=== PATIENT | female | born 1980 | race Caucasian/White ===

== ENCOUNTER 2020-10-15 01:17 | Emergency (ER) | payer OTHER ==
[2020-10-15] MEDS ORDERED: PRINIVIL20 M1 PO (01:31)
[2020-10-15 02:16] LABS: EOS # 0.3 (0.04-0.40); EOS % 3.4 % (1.0-5.0); HEMATOCRIT 42.9 % (37.0-47.0); HEMOGLOBIN 13.7 g/dL (12.5-16.0); LYMPH# 3.1 (1.50-4.00); MEAN CELL VOLUME 96 fl (78-100); MEAN CORPUSCULAR HEMOGLOBIN 31 pg (27-31); MEAN CORPUSCULAR HGB CONC 32 g/dL (33-37); MEAN PLATELET VOLUME 9.4 fl (7.4-10.4); MONO # 0.9 (0.20-0.80); NEU # 5.3 (1.40-6.50); PLATELET COUNT 349 K/mm3 (130-400); RED BLOOD COUNT 4.47 M/mm3 (4.10-5.30); WHITE BLOOD COUNT 9.7 K/mm3 (4.8-10.8)
[2020-10-15 02:22] LABS: URINE APPEARANCE CLEAR; URINE BILIRUBIN NEGATIVE (NEGATIVE); URINE BLOOD 250 ery/uL (NEGATIVE); URINE COLOR YELLOW; URINE GLUCOSE NEGATIVE (NEGATIVE); URINE KETONE NEGATIVE (NEGATIVE); URINE LEUKOCYTE ESTERASE NEGATIVE (NEGATIVE); URINE NITRATE NEGATIVE (NEGATIVE); URINE PROTEIN(semi-quant) TRACE mg/dL (NEGATIVE); URINE UROBILINOGEN NORMAL (NORMAL)
[2020-10-15 02:23] LABS: URINE MUCUS PRESENT (NOT PRESENT)
[2020-10-15 02:28] LABS: ALBUMIN 4.4 g/dL (3.5-5.0); POTASSIUM 3.7 mmol/L (3.5-5.1)
[2020-10-15 02:29] LABS: CALCIUM 9.6 mg/dL (8.3-10.5)
[2020-10-15 02:31] LABS: TOTAL PROTEIN 7.8 g/dL (6.4-8.3)
[2020-10-15 02:32] LABS: TOTAL BILIRUBIN 0.3 mg/dL (0.2-1.2)
[2020-10-15] MEDS ORDERED: PERCOCET 325 MG1 TA2 PO (07:03)
[2020-10-15] MEDS ORDERED: ONDANSETRON ODT8 MG PO (07:06)
[2020-10-15 08:26] VITALS: BP 111/62
== END 2020-10-15 08:30 | disposition home or self-care (01) ==
LOC: ED 01:17
PROVIDERS: Nurse Practitioner Family
DX: N13.2 Hydronephrosis with renal and ureteral calculous obstruction (principal); I10 Essential (primary) hypertension; Z32.02 Encounter for pregnancy test, result negative; Z90.49 Acquired absence of other specified parts of digestive tract; Z88.2 Allergy status to sulfonamides
CPT/HCPCS: J1885; J2270; J2405; J2550; J7030

== ENCOUNTER 2020-12-29 10:54 | Outpatient (RCR) | payer OTHER ==
[~2020-12-29 10:54] MED LIST: ONDANSETRON ODT8 MG PO; PERCOCET 325 MG1 TA2 PO; PRINIVIL20 M1 PO
== END 2021-01-28 17:00 ==
LOC: PT
DX: M50.30 Other cervical disc degeneration, unspecified cervical region (principal)

== ENCOUNTER → 2021-01-07 | Outpatient (CLI) | payer OTHER ==
[2021-01-07 09:11] LABS: EOS # 0.2 (0.04-0.40); EOS % 1.3 % (1.0-5.0); HEMATOCRIT 42.1 % (37.0-47.0); HEMOGLOBIN 13.3 g/dL (12.5-16.0); LYMPH# 4.4 (1.50-4.00); MEAN CELL VOLUME 96 fl (78-100); MEAN CORPUSCULAR HEMOGLOBIN 30 pg (27-31); MEAN CORPUSCULAR HGB CONC 32 g/dL (33-37); MEAN PLATELET VOLUME 9.1 fl (7.4-10.4); MONO # 1.3 (0.20-0.80); PLATELET COUNT 310 K/mm3 (130-400); RED BLOOD COUNT 4.39 M/mm3 (4.10-5.30); RED CELL DISTRIBUTION WIDTH 13.8 % (11.5-14.5); WHITE BLOOD COUNT 15.3 K/mm3 (4.8-10.8)
[2021-01-07 09:18] LABS: ALBUMIN 4.1 g/dL (3.5-5.0)
[2021-01-07 09:19] LABS: CALCIUM 9.1 mg/dL (8.3-10.5)
[2021-01-07 09:21] LABS: TOTAL PROTEIN 7.1 g/dL (6.4-8.3)
[2021-01-07 09:23] LABS: TOTAL BILIRUBIN 0.6 mg/dL (0.2-1.2)
[2021-01-07 10:05] LABS: NEU # 9.2 (1.40-6.50)
== END ==
LOC: LAB 08:52
PROVIDERS: Physician Assistant
DX: Z13.29 Encounter for screening for other suspected endocrine disorder (principal); I10 Essential (primary) hypertension; E78.5 Hyperlipidemia, unspecified; Z83.3 Family history of diabetes mellitus

== ENCOUNTER → 2021-02-02 | Outpatient (CLI) | payer OTHER ==
[~2021-02-02] MED LIST changes: +TRI-LO-SPRINTE1 EACH PO
[2021-02-02 16:12] LABS: BASO # 0.1 (0.02-0.10); EOS # 0.4 (0.04-0.40); EOS % 4.2 % (1.0-5.0); HEMATOCRIT 41.2 % (37.0-47.0); HEMOGLOBIN 13.2 g/dL (12.5-16.0); LYMPH# 2.9 (1.50-4.00); MEAN CELL VOLUME 96 fl (78-100); MEAN CORPUSCULAR HEMOGLOBIN 31 pg (27-31); MEAN CORPUSCULAR HGB CONC 32 g/dL (33-37); MEAN PLATELET VOLUME 9.3 fl (7.4-10.4); MONO # 1.1 (0.20-0.80); NEU # 4.9 (1.40-6.50); PLATELET COUNT 354 K/mm3 (130-400); RED CELL DISTRIBUTION WIDTH 13.5 % (11.5-14.5); WHITE BLOOD COUNT 9.3 K/mm3 (4.8-10.8)
== END ==
LOC: LAB 15:55
PROVIDERS: Physician Assistant
DX: D72.829 Elevated white blood cell count, unspecified (principal)

== ENCOUNTER 2021-08-12 13:02 | Emergency (ER) | payer OTHER ==
[~2021-08-12] VITALS: Ht 167.6 cm; Wt 88.2 kg
[~2021-08-12 13:02] MED LIST changes: -TRI-LO-SPRINTE1 EACH PO
[2021-08-12 13:25] VITALS: BP 146/98
[2021-08-12] MEDS ORDERED: TRI-LO-SPRINTE1 EACH PO (13:35)
== END 2021-08-12 14:13 | disposition home or self-care (01) ==
LOC: ED 13:02
DX: H53.10 Unspecified subjective visual disturbances (principal)

== ENCOUNTER → 2021-11-09 | Outpatient (CLI) | payer OTHER ==
[~2021-11-09] MED LIST changes: +TRI-LO-SPRINTE1 EACH PO
== END ==
LOC: LAB 08:41
DX: R05.9 Cough, unspecified (principal); R53.83 Other fatigue; R68.83 Chills (without fever); Z20.822 Contact with and (suspected) exposure to COVID-19

== ENCOUNTER → 2022-02-09 | Outpatient (CLI) | payer OTHER ==
[2022-02-09 16:22] LABS: BASO # 0.07 K/mm3 (0.02-0.10); EOS # 0.35 K/mm3 (0.04-0.40); EOS % 3.3 % (1.0-5.0); HEMOGLOBIN 13.9 g/dL (12.5-16.0); LYMPH# 2.99 K/mm3 (1.50-4.00); MEAN CELL VOLUME 96 fl (78-100); MEAN CORPUSCULAR HEMOGLOBIN 31 pg (27-31); MEAN CORPUSCULAR HGB CONC 32 g/dL (33-37); MONO # 0.96 K/mm3 (0.20-0.80); NEU # 6.02 K/mm3 (1.40-6.50); PLATELET COUNT 324 K/mm3 (130-400); RED CELL DISTRIBUTION WIDTH 12.6 % (11.5-14.5); WHITE BLOOD COUNT 10.5 K/mm3 (4.8-10.8)
[2022-02-09 17:02] LABS: ALBUMIN 4.4 g/dL (3.5-5.0); POTASSIUM 4.1 mmol/L (3.5-5.1)
[2022-02-09 17:03] LABS: CALCIUM 9.7 mg/dL (8.3-10.5)
[2022-02-09 17:04] LABS: TOTAL PROTEIN 7.8 g/dL (6.4-8.3)
[2022-02-09 17:06] LABS: TOTAL BILIRUBIN 0.3 mg/dL (0.2-1.2)
== END ==
LOC: LAB 15:53
PROVIDERS: Physician Assistant
DX: Z13.220 Encounter for screening for lipoid disorders (principal); Z13.29 Encounter for screening for other suspected endocrine disorder; Z13.1 Encounter for screening for diabetes mellitus; I10 Essential (primary) hypertension; E78.5 Hyperlipidemia, unspecified; Z83.3 Family history of diabetes mellitus

== ENCOUNTER → 2022-02-22 | Outpatient (CLI) | payer OTHER | LOC: MAMMO 15:55 | DX: Z12.31 Encounter for screening mammogram for malignant neoplasm of breast (principal) ==

== ENCOUNTER 2022-04-05 08:53 | Emergency (ER) | payer OTHER ==
[2022-04-05 10:56] LABS: BASO # 0.04 K/mm3 (0.02-0.10); EOS # 0.32 K/mm3 (0.04-0.40); EOS % 4.6 % (1.0-5.0); HEMATOCRIT 39.9 % (37.0-47.0); HEMOGLOBIN 13.2 g/dL (12.5-16.0); MEAN CELL VOLUME 94 fl (78-100); MEAN CORPUSCULAR HEMOGLOBIN 31 pg (27-31); MEAN CORPUSCULAR HGB CONC 33 g/dL (33-37); MEAN PLATELET VOLUME 9.3 fl (7.4-10.4); NEU # 4.04 K/mm3 (1.40-6.50); PLATELET COUNT 306 K/mm3 (130-400); RED BLOOD COUNT 4.25 M/mm3 (4.10-5.30); RED CELL DISTRIBUTION WIDTH 12.8 % (11.5-14.5)
[2022-04-05 11:00] LABS: ALBUMIN 3.9 g/dL (3.5-5.0); POTASSIUM 4.3 mmol/L (3.5-5.1)
[2022-04-05 11:01] LABS: CALCIUM 9.2 mg/dL (8.3-10.5)
[2022-04-05 11:03] LABS: TOTAL PROTEIN 7.3 g/dL (6.4-8.3)
[2022-04-05 11:05] LABS: TOTAL BILIRUBIN 0.5 mg/dL (0.2-1.2)
[2022-04-05 11:44] VITALS: BP 139/98
== END 2022-04-05 11:30 | disposition home or self-care (01) ==
LOC: ED 08:53
PROVIDERS: Physician Assistant
DX: R51.9 Headache, unspecified (principal)
CPT/HCPCS: J1630; J7030

== ENCOUNTER → 2022-07-12 | Outpatient (CLI) | payer OTHER | LOC: RAD 15:26 | DX: M51.37 Other intervertebral disc degeneration, lumbosacral region (principal) ==

== ENCOUNTER → 2022-07-20 | Outpatient (CLI) | payer OTHER | LOC: RAD 07:56 | DX: M51.36 Other intervertebral disc degeneration, lumbar region (principal) ==

== ENCOUNTER 2022-09-27 14:53 | Outpatient (RCR) | payer OTHER | END 2022-10-25 | disposition home or self-care (01) | LOC: PT | DX: M47.896 Other spondylosis, lumbar region (principal) ==

== ENCOUNTER → 2023-02-21 | Outpatient (CLI) | payer OTHER | LOC: MAMMO 15:56 | DX: Z12.31 Encounter for screening mammogram for malignant neoplasm of breast (principal) ==

== ENCOUNTER → 2024-03-04 | Outpatient (CLI) | payer OTHER | LOC: MAMMO 15:51 | DX: Z12.31 Encounter for screening mammogram for malignant neoplasm of breast (principal) ==

== ENCOUNTER → 2024-06-10 | Outpatient (CLI) | payer OTHER ==
[2024-06-10 08:24] LABS: BASO # 0.06 K/mm3 (0.02-0.10); EOS # 0.39 K/mm3 (0.04-0.40); EOS % 5.7 % (1.0-5.0); HEMATOCRIT 41.2 % (37.0-47.0); HEMOGLOBIN 13.4 g/dL (12.5-16.0); MEAN CELL VOLUME 94 fl (78-100); MEAN CORPUSCULAR HEMOGLOBIN 31 pg (27-31); MEAN CORPUSCULAR HGB CONC 33 g/dL (33-37); MEAN PLATELET VOLUME 8.9 fl (7.4-10.4); MONO # 0.64 K/mm3 (0.20-0.80); NEU # 3.61 K/mm3 (1.40-6.50); PLATELET COUNT 297 K/mm3 (130-400); RED BLOOD COUNT 4.37 M/mm3 (4.10-5.30); RED CELL DISTRIBUTION WIDTH 12.9 % (11.5-14.5); WHITE BLOOD COUNT 6.8 K/mm3 (4.8-10.8)
[2024-06-10 08:30] LABS: ALBUMIN 4.4 g/dL (3.5-5.0)
[2024-06-10 08:31] LABS: CALCIUM 10.5 mg/dL (8.3-10.5)
[2024-06-10 08:32] LABS: TOTAL PROTEIN 7.6 g/dL (6.4-8.3)
[2024-06-10 08:34] LABS: TOTAL BILIRUBIN 0.5 mg/dL (0.2-1.2)
== END ==
LOC: LAB 08:04
PROVIDERS: Physician Assistant
DX: Z13.1 Encounter for screening for diabetes mellitus (principal); Z13.29 Encounter for screening for other suspected endocrine disorder; I10 Essential (primary) hypertension; E78.5 Hyperlipidemia, unspecified; K90.9 Intestinal malabsorption, unspecified